=== PATIENT | female | born 1965 | race Caucasian/White ===

== ENCOUNTER 2016-06-21 05:02 | Emergency (ER) | payer OTHER ==
[2016-06-21 03:41] LABS: BASOPHILS 0.3 %; BASOPHILS ABSOLUTE 0.03 10/3/uL (0.0-0.16); EOSINOPHILS 2.9 %; EOSINOPHILS ABSOLUTE 0.25 10/3/uL (0.0-0.53); ER CBC TAT 0 Hrs 06 MinsNP; HEMATOCRIT 38.4 % (36.0-48.0); HEMOGLOBIN 12.1 g/dL (12.0-16.0); IMMATURE GRANULOCYTES 0.3 %; IMMATURE GRANULOCYTES ABSOLUTE 0.03 10/3/uL (0.0-0.11); LYMPHOCYTES 29.7 %; LYMPHOCYTES ABSOLUTE 2.56 10/3/uL (0.67-4.30); MANUAL DIFF NO %; MEAN CORPUS HGB CONC 31.5 g/dL (32.0-36.0); MEAN CORPUSCULAR HEMOGLOB 25.6 pg (26.0-34.0); MEAN CORPUSCULAR VOLUME 81.4 fL (80-100); MEAN PLATELET VOLUME 9.2 fL (9.2-13.0); MONOCYTES 6.1 %; MONOCYTES ABSOLUTE 0.53 10/3/uL (0.21-1.20); NEUTROPHILS 60.7 %; NEUTROPHILS ABSOLUTE 5.23 10/3/uL (2.02-8.40); PLATELET COUNT 280 10/3/uL (150-400); RBC DISTRIBUTION WIDTH 15.2 % (12.0-16.0); RED CELL COUNT 4.72 10/6/uL (4.0-5.6); WHITE BLOOD CELLS 8.6 10/3/uL (4.5-10.5)
[2016-06-21 03:49] LABS: ASCORBIC ACID (UR NOT ORDER) NEG (NEG); BILIRUBIN, URINE NEGATIVE (NEG); ER URINALYSIS TAT 0 Hrs 00 Mins; KETONE, URINE NEGATIVE (NEG); LEUKOCYTE ESTERASE(NOT OR NEG (NEG); NITRITE (URINE) NEG (NEG); WBC (NOT ORDERED) (RFLEX) 1 (0-5)
[2016-06-21 03:55] LABS: CALCIUM, SERUM 8.9 MG/DL (8.5-10.4); CHLORIDE, SERUM 112 MMOL/L (96-112); CO2 (CARBON DIOXIDE) 22 MMOL/L (24-34); CREATININE 0.75 MG/DL (0.55-1.02); GFR AFRICAN AMERICAN 105 ML/MIN (>=60); GFR NON AFRICAN AMERICAN 91 ML/MIN (>=60); GLUCOSE, SERUM 92 MG/DL (60-99); POTASSIUM, SERUM 3.3 MMOL/L (3.5-5.3); SODIUM, SERUM 146 MMOL/L (135-148)
[2016-06-21 03:56] LABS: BUN (BLOOD UREA NITROGEN) 23 MG/DL (6-23)
[~2016-06-21 05:02] MED LIST: AEROSPAN; ALEVE220 MG PO; AMB10 PO; AMB5 PO; AMERGE2.5 MG PO; AT25 PO; BEN25 PO; BENADRYL 50 MG50 MG PO; BL FLAX SEED1000 MG PO; CENTRUM TAB1 TAB PO; CLARIT10 PO; COQ-1075 MG OR; CRANBERRY250 MG OR; CYANO1000T PO; CYMBALTA60 PO; DEMEROL100 MG PO; DIL2TAB PO; ELMIRON 100 MG100 MG OR; ENABLEX15 PO; EYE DROP1 OP; FLAXSEED OIL; FLEX PO; HIZENTRA SQ; HYALURONIDASE SC; HYDROCHLOROT12.5 MG PO; IBU-200200 MG PO; IMMUNE GLOBULIN SC; IMOD PO; L-CARNITINE500 M1 PO; LEVAQUIN750 MG PO; LEVOTHROID50 MCG PO; LORT7 PO; LORTAB 5 PO; LYRICA100 MG PO; MULTIVITAMI1 PO; NEUPRO 4MG4 MG/24 HR TOP; NEUPRO1 EAC2 TOP; OMEGA 3 PO; OXYCON10 PO; PERCOCET1 TA4 PO; PRILO PO; PRILOSEC OTC20 MG PO; PRIVIGEN IV; PROAIR HFA INH; QNASL8.7 GM NAS; RELPAX40 MG PO; REQUIP1 PO; RESTASIS OPH; SEPTRA DS1 TAB PO; SINGULAIR1 PO; SUCR PO; SYN.05 PO; TOBDEXOO OPH; TOPAMAX100 PO; UROCIT-K 10 PO; UROCIT-K 5540 MG PO; UTA OR; VAGIFEM25 MCG V; VITAMIN D1000 UNI1 PO; VITAMIN D31000 UNIT PO; VIVELLE-DOT0.0375 MG TOP; VIVELLE-DOT0.05 MG TOP; Vitamin B-Twelve PO; ZANAFLEX 4 MG TA4 MG PO; ZOFRAN4 PO; ZOFRAN8 PO; [UNRECOGNIZED DRUG - OTHER] PO; [UNRECOGNIZED DRUG - OTHER] PO
[2016-11-29] MEDS ORDERED: IMMUNE GLOBULIN IV (17:38)
[2016-11-29] MEDS ORDERED: SYSTAN1 OPH (17:40)
[2016-11-29] MEDS ORDERED: LOTEPREDNOL OPH (17:40)
[2016-11-29] MEDS ORDERED: REFRES1 OPH (17:40)
[2016-11-29] MEDS ORDERED: ULTRAM50 PO (17:41)
[2016-11-29] MEDS ORDERED: CAMBIA PO (17:42)
[2016-11-29] MEDS ORDERED: AMERGE1 MG PO (17:43)
[2016-11-29] MEDS ORDERED: FLOVENT44 INH (17:43)
[2016-11-29] MEDS ORDERED: SYN.05 PO (17:43)
[2016-11-29] MEDS ORDERED: UROCIT-K10 MEQ PO (17:44)
[2016-11-29] MEDS ORDERED: RELPAX40 MG PO (17:45)
[2016-11-29] MEDS ORDERED: ZANAFLEX 4 MG TA4 MG PO ×2 (17:46)
[2016-11-29] MEDS ORDERED: ZANTAC300 MG PO (17:48)
[2016-11-29] MEDS ORDERED: QNASL8.7 GM NAS (17:50)
[2016-11-29] MEDS ORDERED: TOPAMAX200 MG PO ×2 (17:51)
[2016-11-29] MEDS ORDERED: CYMBALTA60 PO (17:51)
[2016-11-29] MEDS ORDERED: ZOFRAN4 PO (17:52)
[2016-11-29] MEDS ORDERED: REQUIP1 PO (17:53)
[2016-11-29] MEDS ORDERED: PROAIRRESP INH (17:54)
[2016-11-29] MEDS ORDERED: BEN25 PO (17:55)
[2016-11-29] MEDS ORDERED: ACET500CAP PO (17:56)
[2016-11-29] MEDS ORDERED: ASA5GR PO (17:57)
[2016-11-29] MEDS ORDERED: EXCEDRIN TENSI1 EACH PO (17:58)
[2016-12-03] MEDS ORDERED: AMPI500 PO (14:36)
[2016-12-03] MEDS ORDERED: FLOMAX4 PO (14:36)
[2016-12-03] MEDS ORDERED: FLUCON150 PO (14:37)
== END 2016-06-21 05:23 | disposition home or self-care (01) ==
LOC: ER 05:02
PROVIDERS: Emergency Medicine
DX: R10.9 Unspecified abdominal pain (principal); J45.909 Unspecified asthma, uncomplicated; F32.9 Major depressive disorder, single episode, unspecified; F41.9 Anxiety disorder, unspecified; D64.9 Anemia, unspecified; G25.81 Restless legs syndrome; Z87.442 Personal history of urinary calculi; Z90.710 Acquired absence of both cervix and uterus; Z88.1 Allergy status to other antibiotic agents; Z79.899 Other long term (current) drug therapy
CPT/HCPCS: 80048; 81001; 85025; 96374; 96375; 99284; J1170; J2405

== ENCOUNTER 2016-08-19 06:04 | Emergency (ER) | payer OTHER ==
[2016-11-29] MEDS ORDERED: IMMUNE GLOBULIN IV (17:38)
[2016-11-29] MEDS ORDERED: SYSTAN1 OPH (17:40)
[2016-11-29] MEDS ORDERED: LOTEPREDNOL OPH (17:40)
[2016-11-29] MEDS ORDERED: REFRES1 OPH (17:40)
[2016-11-29] MEDS ORDERED: ULTRAM50 PO (17:41)
[2016-11-29] MEDS ORDERED: CAMBIA PO (17:42)
[2016-11-29] MEDS ORDERED: SYN.05 PO (17:43)
[2016-11-29] MEDS ORDERED: FLOVENT44 INH (17:43)
[2016-11-29] MEDS ORDERED: AMERGE1 MG PO (17:43)
[2016-11-29] MEDS ORDERED: UROCIT-K10 MEQ PO (17:44)
[2016-11-29] MEDS ORDERED: RELPAX40 MG PO (17:45)
[2016-11-29] MEDS ORDERED: ZANAFLEX 4 MG TA4 MG PO ×2 (17:46)
[2016-11-29] MEDS ORDERED: ZANTAC300 MG PO (17:48)
[2016-11-29] MEDS ORDERED: QNASL8.7 GM NAS (17:50)
[2016-11-29] MEDS ORDERED: CYMBALTA60 PO (17:51)
[2016-11-29] MEDS ORDERED: TOPAMAX200 MG PO ×2 (17:51)
[2016-11-29] MEDS ORDERED: ZOFRAN4 PO (17:52)
[2016-11-29] MEDS ORDERED: REQUIP1 PO (17:53)
[2016-11-29] MEDS ORDERED: PROAIRRESP INH (17:54)
[2016-11-29] MEDS ORDERED: BEN25 PO (17:55)
[2016-11-29] MEDS ORDERED: ACET500CAP PO (17:56)
[2016-11-29] MEDS ORDERED: ASA5GR PO (17:57)
[2016-11-29] MEDS ORDERED: EXCEDRIN TENSI1 EACH PO (17:58)
[2016-12-03] MEDS ORDERED: FLOMAX4 PO (14:36)
[2016-12-03] MEDS ORDERED: AMPI500 PO (14:36)
[2016-12-03] MEDS ORDERED: FLUCON150 PO (14:37)
== END 2016-08-19 07:29 | disposition home or self-care (01) ==
LOC: ER 06:04
DX: G89.29 Other chronic pain (principal); M54.2 Cervicalgia; M25.511 Pain in right shoulder; M25.512 Pain in left shoulder; M54.9 Dorsalgia, unspecified; F41.9 Anxiety disorder, unspecified; F32.9 Major depressive disorder, single episode, unspecified; Z87.442 Personal history of urinary calculi; Z90.710 Acquired absence of both cervix and uterus; Z90.49 Acquired absence of other specified parts of digestive tract; Z88.1 Allergy status to other antibiotic agents; Z88.8 Allergy status to other drugs, medicaments and biological substances; Z79.899 Other long term (current) drug therapy
CPT/HCPCS: 96374; 96375; 99283; J1885; J2360; J2930